=== PATIENT | male | born 1955 | race Caucasian/White ===

== ENCOUNTER 2021-08-20 19:32 | Inpatient (IN) | payer OTHER ==
[~2021-08-20] VITALS: Ht 177.8 cm; Wt 57.6 kg
[~2021-08-20 19:32] MED LIST: LOSA-69 PO; PANT40TA2 PO
[2021-08-20] MEDS ORDERED: PANTOPRAZOLE 40 MG/10 ML VIAL INJ IV ONE (20:15)
[2021-08-20] MEDS ORDERED: PANTOPRAZOLE 40mg/50ML NS AE 50 ML IV ONE (20:15)
[2021-08-20] MEDS ORDERED: SODIUM CHLORIDE 0.9% 1,000 ML IV ONE (20:30)
[2021-08-20 20:49] LABS: Basophils # (auto) 0.1 10 ^3/uL (0-0.2); Basophils % (auto) 0.8 % (0.0-2.0); Eosinophils # (auto) 0 10 ^3/uL (0-0.8); Eosinophils % (auto) 0.1 % (0.0-7.0); Hematocrit 24.4 % (41.0-53.0); Hemoglobin 8.6 g/dL (13.5-17.5); Lymphocytes # (auto) 0.4 10 ^3/uL (0.4-5.4); Lymphocytes % (auto) 3.1 % (10.0-50.0); Mean Corpuscular Hemoglobin 32.9 pg (28.0-32.0); Mean Corpuscular Hgb Conc. 35.1 g/dL (32.0-36.0); Mean Corpuscular Volume 93.7 fL (80.0-100.0); Monocytes # (auto) 0.8 10 ^3/uL (0-1.3); Monocytes % (auto) 5.7 % (0.0-12.0); Neutrophils # (auto) 11.9 10 ^3/uL (1.6-8.6); Neutrophils % (auto) 90.3 % (37.0-80.0); Nucleated Red Blood Cells % 0.1 %; Red Cell Distribution Width 14.9 % (11.8-14.3); White Blood Cell 13.2 10^3/uL (4.4-10.8)
[2021-08-20 21:09] LABS: Albumin 1.6 g/dL (3.4-5.0); Calcium 7.4 mg/dL (8.5-10.1)
[2021-08-20 21:15] LABS: Bilirubin, Total 1.4 mg/dL (0.2-1.0); Total Protein 4.8 g/dL (6.4-8.2)
[2021-08-20 21:19] LABS: Potassium 2.2 mmol/L (3.5-5.1)
[2021-08-20 21:23] LABS: INR 1.2 (0.9-1.15); Partial Thromboplastin Time 32.9 sec (23.6-33.0)
[2021-08-20] MEDS ORDERED: ONDANSETRON HCL 4 MG/2 ML VIAL IV PRN (22:45)
[2021-08-20] MEDS ORDERED: AZITHROMYCIN 500MG/ 250ML 250 ML IV ONE (22:45)
[2021-08-20] MEDS: D5W/SOD CHLO 0.9% 1,000 ML IV SCH (22:45)
[2021-08-20] MEDS ORDERED: ACETAMINOPHEN 325 MG TAB PO PRN (22:45)
[2021-08-20] MEDS ORDERED: HYDROcodone-ACET 5/325MG TAB PO PRN (22:45)
[2021-08-20] MEDS ORDERED: cefTRIAXone 1GM/50ML D5W 50 ML IV ONE (22:45)
[2021-08-20] MEDS ORDERED: POTASSIUM CHL 20 Meq TABLET PO ONE (22:45)
[2021-08-20] MEDS ORDERED: NITROGLYCERIN 0.4 MG SL TAB SL PRN (23:15)
[2021-08-20] MEDS ORDERED: MORPHINE SULFATE INJECTION 2 MG/ML SYRG IV PRN (23:15)
[2021-08-21] MEDS ORDERED: SODIUM CHLORIDE 0.9% 1,000 ML IV ONE
[2021-08-21] MEDS: ALBUMIN 25% 100 ML IV SCH ×3 (01:11→15:00)
[2021-08-21] MEDS: POTASSIUM CHL 20MEQ/100ML 100 ML IV SCH ×2 (01:55→03:46)
[2021-08-21 05:15] VITALS: BP 107/62
[2021-08-21 09:00] VITALS: BP 106/69
[2021-08-21] MEDS ORDERED: PANTOPRAZOLE 40 MG/10 ML VIAL INJ IV SCH (10:00)
[2021-08-21 10:08] LABS: Basophils # (auto) 0.1 10 ^3/uL (0-0.2); Eosinophils # (auto) 0 10 ^3/uL (0-0.8); Eosinophils % (auto) 0.3 % (0.0-7.0); Hemoglobin 10.8 g/dL (13.5-17.5); Lymphocytes # (auto) 0.8 10 ^3/uL (0.4-5.4); Lymphocytes % (auto) 7.5 % (10.0-50.0); Mean Corpuscular Hemoglobin 32.5 pg (28.0-32.0); Mean Corpuscular Hgb Conc. 34.8 g/dL (32.0-36.0); Mean Corpuscular Volume 93.5 fL (80.0-100.0); Monocytes # (auto) 0.7 10 ^3/uL (0-1.3); Monocytes % (auto) 6.2 % (0.0-12.0); Red Blood Cells 3.32 10^6/uL (4.5-5.90); Red Cell Distribution Width 14.7 % (11.8-14.3); White Blood Cell 10.6 10^3/uL (4.4-10.8)
[2021-08-21 10:27] LABS: Albumin 2.4 g/dL (3.4-5.0); Calcium 7.9 mg/dL (8.5-10.1)
[2021-08-21 10:32] LABS: BUN/Creatinine Ratio 7.7; Bilirubin, Total 1.4 mg/dL (0.2-1.0); Total Protein 5.2 g/dL (6.4-8.2)
[2021-08-21 10:44] LABS: Potassium 2.7 mmol/L (3.5-5.1)
[2021-08-21 11:22] LABS: Urine Bacteria NONE SEEN /hpf (None Seen); Urine Blood Negative /uL (Negative); Urine Specific Gravity 1.006 (1.001-1.035); Urine WBC 3 /hpf (0 - 3)
[2021-08-21] MEDS ORDERED: POTASSIUM CHLORIDE 60 MEQ, LIDOCAINE 1% (LOCAL ANESTH.) 6 ML in SODIUM CHL 0.9% 500 ML IV ONE (12:00)
[2021-08-21] MEDS: D5W/SOD CHLO 0.9% 1,000 ML IV SCH (12:05)
[2021-08-21] MEDS ORDERED: FOLIC ACID 1 MG, MULTIPLE VITAMIN 10 ML, MAGNESIUM SULF SDV 50% 8 MEQ, THIAMINE INJ 100... INJ SCH ×5 (12:41)
[2021-08-21 13:00] VITALS: BP 108/77
[2021-08-21] MEDS ORDERED: SODIUM CHLORIDE LOCK 10 ML ONE (13:07)
[2021-08-21] MEDS ORDERED: LIDOCAINE VISCOUS 2% 15ML UD ONE (13:07)
[2021-08-21] MEDS ORDERED: fentaNYL CITRATE 100 MCG/2 ML VL ONE (13:08)
[2021-08-21] MEDS ORDERED: MIDAZOLAM HCL 5 MG/ML-1ML VIAL ONE (13:08)
[2021-08-21] MEDS: diphenhdrAMINE HCL 50 MG/1 ML VL ONE ×2 (13:15→13:21)
[2021-08-21] MEDS: PANTOPRAZOLE 40mg/50ML NS AE 50 ML IV SCH ×2 (14:00→20:00)
[2021-08-21 16:15] LABS: Hematocrit 33.2 % (41.0-53.0); Hemoglobin 11.4 g/dL (13.5-17.5)
[2021-08-21 17:00] VITALS: BP 141/80
[2021-08-21] MEDS: SUCRALFATE 1 GM/10 ML ORAL SUSP PO SCH (17:00)
[2021-08-21] MEDS ORDERED: SUCRALFATE 1 GM/10 ML ORAL SUSP PO SCH (17:00)
[2021-08-21] MEDS ORDERED: POTASSIUM CHL 20 Meq TABLET PO SCH (18:00)
[2021-08-21] MEDS ORDERED: ALBUMIN 25% 100 ML IV SCH (20:00)
[2021-08-21] MEDS: cefTRIAXone 1GM/50ML D5W 50 ML IV SCH (21:15)
[2021-08-21 22:00] VITALS: BP 131/79
[2021-08-21] MEDS ORDERED: AZITHROMYCIN 500MG/ 250ML 250 ML IV SCH (22:00)
[2021-08-21] MEDS: AZITHROMYCIN 500MG/ 250ML 250 ML IV SCH (23:00)
[2021-08-22] VITALS (9 sets, daily range): BP systolic 114–135; BP diastolic 61–80
[2021-08-22] MEDS: SUCRALFATE 1 GM/10 ML ORAL SUSP PO SCH ×5 (00:14→22:02)
[2021-08-22] MEDS: PANTOPRAZOLE 40mg/50ML NS AE 50 ML IV SCH ×5 (00:42→20:00)
[2021-08-22] MEDS: D5W/SOD CHLO 0.9% 1,000 ML IV SCH ×2 (01:25→14:45)
[2021-08-22] MEDS: FOLIC ACID 1 MG, MULTIPLE VITAMIN 10 ML, MAGNESIUM SULF SDV 50% 8 MEQ, THIAMINE INJ 100... INJ SCH ×5 (02:31)
[2021-08-22 06:27] LABS: Basophils # (auto) 0 10 ^3/uL (0-0.2); Basophils % (auto) 0.3 % (0.0-2.0); Eosinophils # (auto) 0 10 ^3/uL (0-0.8); Eosinophils % (auto) 0.3 % (0.0-7.0); Hematocrit 30.1 % (41.0-53.0); Hemoglobin 10.4 g/dL (13.5-17.5); Lymphocytes # (auto) 0.7 10 ^3/uL (0.4-5.4); Lymphocytes % (auto) 6.3 % (10.0-50.0); Mean Corpuscular Hemoglobin 32.8 pg (28.0-32.0); Mean Corpuscular Hgb Conc. 34.6 g/dL (32.0-36.0); Mean Corpuscular Volume 94.6 fL (80.0-100.0); Monocytes # (auto) 0.7 10 ^3/uL (0-1.3); Monocytes % (auto) 6.5 % (0.0-12.0); Neutrophils % (auto) 86.6 % (37.0-80.0); Nucleated Red Blood Cells % 0.1 %; Red Blood Cells 3.18 10^6/uL (4.5-5.90); Red Cell Distribution Width 14.7 % (11.8-14.3); White Blood Cell 10.4 10^3/uL (4.4-10.8)
[2021-08-22 06:54] LABS: Albumin 2.6 g/dL (3.4-5.0); BUN/Creatinine Ratio 8.6; Bilirubin, Total 1.6 mg/dL (0.2-1.0); Calcium 7.9 mg/dL (8.5-10.1); Total Protein 5.3 g/dL (6.4-8.2)
[2021-08-22 07:36] LABS: Potassium 2.8 mmol/L (3.5-5.1)
[2021-08-22] MEDS ORDERED: POTASSIUM CHLORIDE 60 MEQ, LIDOCAINE 1% (LOCAL ANESTH.) 6 ML in SODIUM CHL 0.9% 500 ML IV ONE (09:00)
[2021-08-22 15:03] LABS: Hematocrit 34.9 % (41.0-53.0); Hemoglobin 11.8 g/dL (13.5-17.5)
[2021-08-22] MEDS ORDERED: LORazepam 0.5 MG TAB PO ONE (19:00)
[2021-08-22] MEDS: cefTRIAXone 1GM/50ML D5W 50 ML IV SCH (22:02)
[2021-08-22] MEDS: AZITHROMYCIN 500MG/ 250ML 250 ML IV SCH (23:16)
[2021-08-23] MEDS: FOLIC ACID 1 MG, MULTIPLE VITAMIN 10 ML, MAGNESIUM SULF SDV 50% 8 MEQ, THIAMINE INJ 100... INJ SCH ×5
[2021-08-23] MEDS: PANTOPRAZOLE 40mg/50ML NS AE 50 ML IV SCH ×4 (02:00→16:25)
[2021-08-23 05:00] VITALS: BP 128/80
[2021-08-23] MEDS: D5W/SOD CHLO 0.9% 1,000 ML IV SCH ×2 (05:05→17:25)
[2021-08-23 06:16] LABS: Basophils # (auto) 0.1 10 ^3/uL (0-0.2); Eosinophils # (auto) 0.1 10 ^3/uL (0-0.8); Hematocrit 33.4 % (41.0-53.0); Hemoglobin 11.8 g/dL (13.5-17.5); Lymphocytes # (auto) 0.9 10 ^3/uL (0.4-5.4); Lymphocytes % (auto) 9.1 % (10.0-50.0); Mean Corpuscular Hemoglobin 33.3 pg (28.0-32.0); Mean Corpuscular Hgb Conc. 35.3 g/dL (32.0-36.0); Mean Corpuscular Volume 94.5 fL (80.0-100.0); Monocytes # (auto) 0.6 10 ^3/uL (0-1.3); Monocytes % (auto) 6.4 % (0.0-12.0); Neutrophils # (auto) 8.2 10 ^3/uL (1.6-8.6); Neutrophils % (auto) 82.5 % (37.0-80.0); Nucleated Red Blood Cells % 0.1 %; Red Blood Cells 3.54 10^6/uL (4.5-5.90)
[2021-08-23 06:27] LABS: Calcium 7.9 mg/dL (8.5-10.1); Potassium 3.2 mmol/L (3.5-5.1)
[2021-08-23 06:33] LABS: Albumin 2.4 g/dL (3.4-5.0); Bilirubin, Total 0.6 mg/dL (0.2-1.0); Total Protein 5.4 g/dL (6.4-8.2)
[2021-08-23] MEDS: SUCRALFATE 1 GM/10 ML ORAL SUSP PO SCH ×3 (06:57→17:15)
[2021-08-23 08:57] VITALS: BP 116/78
[2021-08-23] MEDS ORDERED: POTASSIUM CHLORIDE 40 MEQ, LIDOCAINE 1% (LOCAL ANESTH.) 4 ML in SODIUM CHL 0.9% 250 ML IV ONE (11:45)
[2021-08-23 13:07] VITALS: BP 118/83
[2021-08-23 16:00] LABS: Hematocrit 34.2 % (41.0-53.0); Hemoglobin 11.8 g/dL (13.5-17.5)
[2021-08-23 17:02] VITALS: BP 128/82
[2021-08-23] MEDS ORDERED: POTASSIUM CHLORIDE 40 MEQ, LIDOCAINE 1% (LOCAL ANESTH.) 4 ML in SODIUM CHL 0.9% 250 ML IV SCH (18:00)
== END 2021-08-23 21:40 | disposition short-term general hospital (02) | DRG 871 ==
LOC: EDBD 19:32 → ER 19:32 → OVERFLOW 23:14 → EAST 08-21 04:26
PROVIDERS: ADMIT Nurse Practitioner Family; ATTEND Family Medicine
PROC: 0DB68ZX Excision of Stomach, Via Natural or Artificial Opening Endoscopic, Diagnostic (ICD-10-PCS; 2021-08-21)
PROC: 0DB18ZX Excision of Upper Esophagus, Via Natural or Artificial Opening Endoscopic, Diagnostic (ICD-10-PCS; 2021-08-21)
PROC: 0DB38ZX Excision of Lower Esophagus, Via Natural or Artificial Opening Endoscopic, Diagnostic (ICD-10-PCS; 2021-08-21)
PROC: 0DB98ZX Excision of Duodenum, Via Natural or Artificial Opening Endoscopic, Diagnostic (ICD-10-PCS; principal; 2021-08-21 13:12)
PROC: 30233K1 Transfusion of Nonautologous Frozen Plasma into Peripheral Vein, Percutaneous Approach (ICD-10-PCS; 2021-08-22)
DX: A41.9 Sepsis, unspecified organism (principal); J18.9 Pneumonia, unspecified organism; J96.00 Acute respiratory failure, unspecified whether with hypoxia or hypercapnia; E43 Unspecified severe protein-calorie malnutrition; K22.11 Ulcer of esophagus with bleeding; K25.4 Chronic or unspecified gastric ulcer with hemorrhage; K29.81 Duodenitis with bleeding; K29.71 Gastritis, unspecified, with bleeding; E87.1 Hypo-osmolality and hyponatremia; Z68.1 Body mass index [BMI] 19.9 or less, adult; E87.6 Hypokalemia; F17.210 Nicotine dependence, cigarettes, uncomplicated; I10 Essential (primary) hypertension; Z20.822 Contact with and (suspected) exposure to COVID-19; K22.2 Esophageal obstruction; K44.9 Diaphragmatic hernia without obstruction or gangrene; D63.8 Anemia in other chronic diseases classified elsewhere; Z83.3 Family history of diabetes mellitus; Z80.1 Family history of malignant neoplasm of trachea, bronchus and lung; Z82.3 Family history of stroke; Z85.028 Personal history of other malignant neoplasm of stomach; Z71.6 Tobacco abuse counseling; Z71.41 Alcohol abuse counseling and surveillance of alcoholic
CPT/HCPCS: 36415; 71045; 71250; 74176; 80053; 81001; 83605; 83880; 84484; 85014; 85018; 85025; 85610; 85730; 86850; 86900; 86901; 87040; 92610; 93005; 96365; 96366; 96368; 96375; C9113; G0378; J0696; J2001; J2250; J3480; J7042; P9047

== ENCOUNTER 2021-10-08 01:24 | Emergency (ER) | payer MEDICARE, OTHER ==
[~2021-10-08] VITALS: Ht 175.3 cm; Wt 49.4 kg
[2021-10-08 02:50] LABS: Basophils # (auto) 0.1 10 ^3/uL (0-0.2); Basophils % (auto) 0.5 % (0.0-2.0); Eosinophils # (auto) 0.1 10 ^3/uL (0-0.8); Eosinophils % (auto) 1.1 % (0.0-7.0); Hemoglobin 8.8 g/dL (13.5-17.5); Lymphocytes # (auto) 0.9 10 ^3/uL (0.4-5.4); Lymphocytes % (auto) 6.6 % (10.0-50.0); Mean Corpuscular Hemoglobin 31.3 pg (28.0-32.0); Mean Corpuscular Volume 92.2 fL (80.0-100.0); Monocytes # (auto) 0.9 10 ^3/uL (0-1.3); Monocytes % (auto) 7.1 % (0.0-12.0); Neutrophils # (auto) 11.2 10 ^3/uL (1.6-8.6); Neutrophils % (auto) 84.7 % (37.0-80.0); Red Blood Cells 2.82 10^6/uL (4.5-5.90); Red Cell Distribution Width 14.3 % (11.8-14.3); White Blood Cell 13.3 10^3/uL (4.4-10.8)
[2021-10-08 03:04] LABS: Albumin 2.7 g/dL (3.4-5.0); BUN/Creatinine Ratio 31.1; Magnesium 2.2 mg/dL (1.6-2.6)
[2021-10-08 03:06] LABS: Bilirubin, Total 0.4 mg/dL (0.2-1.0); Total Protein 6.8 g/dL (6.4-8.2)
[2021-10-08] MEDS ORDERED: SODIUM CHLORIDE 0.9% 500 ML IV ONE (04:00)
[2021-10-08] MEDS ORDERED: SODIUM CHLORIDE 0.9% 1,000 ML IV SCH (07:15)
[2021-10-08] MEDS ORDERED: HYDROcodone-ACET 5/325MG TAB PO PRN (07:15)
[2021-10-08] MEDS ORDERED: MORPHINE SULFATE INJ 2 MG/ml SYRG IV PRN (07:15)
[2021-10-08] MEDS ORDERED: ONDANSETRON HCL 4 MG/2 ML VIAL IV PRN (07:15)
[2021-10-08] MEDS ORDERED: ACETAMINOPHEN 325 MG TAB PO PRN (07:15)
[2021-10-08] MEDS ORDERED: DOCUSATE SOD 100 MG CAP PO PRN (07:15)
[2021-10-08] MEDS ORDERED: cefTRIAXone 1GM/50ML D5W 50 ML IV ONE (09:09)
[2021-10-08] MEDS ORDERED: cefTRIAXone 1GM/50ML D5W 50 ML IV SCH (10:00)
[2021-10-08 10:29] VITALS: BP 114/73
== END 2021-10-08 08:20 | disposition short-term general hospital (02) ==
LOC: ER 01:24 → EDBD 01:24 → TELE 07:20 → UNDOADMIN 07:20 → ER 08:20
DX: S01.01XA Laceration without foreign body of scalp, initial encounter (principal); S09.90XA Unspecified injury of head, initial encounter; E87.1 Hypo-osmolality and hyponatremia; E88.09 Other disorders of plasma-protein metabolism, not elsewhere classified; J44.9 Chronic obstructive pulmonary disease, unspecified; Z20.822 Contact with and (suspected) exposure to COVID-19; Z87.891 Personal history of nicotine dependence; X58.XXXA Exposure to other specified factors, initial encounter; Y93.89 Activity, other specified; Y92.89 Other specified places as the place of occurrence of the external cause; Y99.8 Other external cause status
CPT/HCPCS: 12001; 36415; 70450; 71045; 72125; 80053; 83735; 83880; 84484; 85025; 87426; 93005; 96361; 96365; 99285; J0696; J7030; J7040

== ENCOUNTER 2021-11-10 15:26 | Emergency (ER) | payer OTHER ==
[~2021-11-10] VITALS: Ht 177.8 cm; Wt 60.0 kg
[2021-11-10] MEDS ORDERED: methylPREDNISolone SOD SUCC 125 MG/2 ML VL IM ONE (18:00)
[2021-11-10 18:33] VITALS: BP 134/69
== END 2021-11-10 17:42 | disposition home or self-care (01) ==
LOC: ER 15:26 → EDBD 15:26 → ER 17:42
DX: J95.03 Malfunction of tracheostomy stoma (principal); J44.9 Chronic obstructive pulmonary disease, unspecified; Z87.891 Personal history of nicotine dependence
CPT/HCPCS: 96372; 99285; J2930; 43762

== ENCOUNTER 2021-12-30 08:00 | Emergency (ER) | payer OTHER ==
[~2021-12-30] VITALS: Ht 177.8 cm; Wt 50.5 kg
[2021-12-30] MEDS ORDERED: GASTROGRAFIN 30 ML SOL ONE (09:10)
[2021-12-30] MEDS ORDERED: MORPHINE SULFATE INJ 2 MG/ml SYRG IM ONE (10:00)
[2021-12-30 10:30] VITALS: BP 118/73
== END 2021-12-30 11:03 | disposition home or self-care (01) ==
LOC: ER 08:00
DX: K94.23 Gastrostomy malfunction (principal); J44.9 Chronic obstructive pulmonary disease, unspecified; Z87.891 Personal history of nicotine dependence
CPT/HCPCS: 43762; 74018; 99284; J2270; Q9963